=== PATIENT | male | born 1970 | race Caucasian/White ===

== ENCOUNTER 2024-05-24 06:10 | Day surgery (SDC) | payer OTHER, SELFPAY ==
[2024-05-06 12:16] VITALS: BMI 21.7
[2024-05-24] VITALS (11 sets, daily range): BP systolic 106–138; BP diastolic 62–79; BMI 21.7
[2024-05-24] MEDS: TYLENOL 1000 MG PO (08:46)
--- NOTE | 2024-05-24 08:57 | W.SUR.PREOP ---
Pre-Operative Surgical Note
-
I have examined this patient prior to the performance of the scheduled procedure.
The patient's condition is unchanged from the time of the current History and
Physical and the patient is able to undergo the scheduled procedure.
--- NOTE | 2024-05-24 08:58 | HP.FOC2 ---
Focused History & Physical
Chief Complaint
HPI:
Chief Complaint: Left inguinal hernia, right inguinal hernia and umbilical hernia
HPI / Indication for Planned Procedure: Will plan for laparoscopic bilateral inguinal hernia repair with mesh, open umbilical hernia repair with mesh.
Relevant Past Medical History: Negative
Relevant Social History: Negative
Relevant Family History: Negative
Relevant Past Surgical History: Negative
Review of Systems
Review of Pertinent Systems: All Systems Negative
Medication
See Medication form for detailed medications: Yes
Medication List (including Herbals & OTC):
esomeprazole magnesium 20 mg capsule,delayed release (Nexium) 20 mg PO Q48H 06/15/20
losartan 50 mg tablet 75 mg PO QPM 05/17/24
sildenafil 50 mg tablet 50 mg PO PRN PRN ED 05/17/24
Medications Reviewed: Yes
Allergies and Reactions
Patient has Allergies: Yes
Noted Allergies and Reactions:
Allergy/AdvReac Type Severity Reaction Status Date / Time
codeine Allergy Unknown Unknown Verified 05/24/24 08:43
Pertinent Physical Exam
All Other Systems: Negative
Head/Neck: Normal
Diagnosis / Assessment
This is a 53-year-old male with bilateral inguinal hernias as well as an umbilical hernia
Plan / Procedure
Will plan for a laparoscopic bilateral inguinal hernia repair with mesh as well as an open umbilical hernia repair with mesh.
Anesthesia/Sedation to be done by Anesthesia Provider: Yes
[2024-05-24] MEDS: NORMOSOL-R/PLASMALYTE-A 1000 IV (09:00)
[2024-05-24] MEDS: DILAUDID 0.25 MG IV (11:55)
--- NOTE | 2024-05-24 12:07 | W.IMMPOSTOP ---
Surgical Immed Post Op Note
-
Primary Surgeon: Hector Rowland MD
Assisting Surgeon: None
Pre-op Diagnosis: Bilateral inguinal hernias, umbilical hernia
Post-op Diagnosis: Same
Procedure Performed:
1. Laparoscopic bilateral inguinal hernia repair with mesh
2. Open primary umbilical hernia repair
Anesthesia Type: General
Specimen / Cultures: None
Estimated Blood Loss: 3 cc
Complications: None
Operative Findings: Bilateral direct inguinal hernias. No indirect or femoral components. Bilateral small cord lipomas reduced and resected. After achieving the critical view of the MPO bilaterally the floor was reinforced with 2 large Bard 3D
max uncoated polypropylene meshes. The umbilical defect measured 1.1 cm and so was closed with 2 [id number] 0 Surgilon sutures.
--- NOTE | 2024-05-24 12:10 | OR.RPT ---
Operative Report
Operative Report
Patient Name: Diaz Newby
: 1970
Date of Operation: 05/24/2024
Preoperative Diagnosis: Reducible bilateral inguinal hernias, umbilical hernia
Postoperative Diagnosis: Same
Procedure(s):
1. Laparoscopic bilateral inguinal Hernia Repair with mesh, (TEP approach)
2. Open primary umbilical hernia repair
Surgeon(s):
Dr. Rowland
Drywall Finisher Foreman(s):
ALEJANDRA Rivera
Anesthesia: General
Estimated Blood Loss: 3 cc
Urine Output: None
Drains/Lines/Implants: Large 3D Max Bard mid weight mesh x2
Specimens: None
Indication for surgery: The patient has a history of left groin pain and noted on exam to have bilateral inguinal and umbilical hernia(s). Following review of therapeutic options they elected to undergo a minimally invasive repair.
Operative Findings: Bilateral direct inguinal hernias. No indirect or femoral components. Bilateral small cord lipomas reduced and resected. After achieving the critical view of the MPO bilaterally the floor was reinforced with 2 large Bard 3D
max uncoated polypropylene meshes. The umbilical defect measured 1.1 cm and so was closed with 2 [id number]-[id number] 0 Surgilon sutures.
Details of the operation:
After inducing general anesthesia and endotracheal intubation, the patient was prepped and draped in the supine position with both arms tucked. After infiltration with 0.25% Marcaine, a infraumbilical incision was made. Dissection was carried down
to the right anterior sheath which was incised and the rectus muscle retracted laterally. An origin balloon was then inserted in through the posterior portion of the rectus into the preperitoneal space. This was insufflated under direct vision and
blunt dissection was therefore achieved in the preperitoneal space. The balloon was then removed and a 12mm Balloon trocar was placed. Two 5-mm ports were also placed in the midline below the camera port. Blunt dissection was used to dissect the
myopectineal orifice with care not to injure the epigastric vessels, gonadals or spermatic cord. Blunt dissection was used to identify the direct, indirect, and femoral spaces.
Left side:
The cord was inspected and an indirect hernia sac was not identified.
There was a small cord lipoma which was reduced and resected.
There was a weakness in the direct space floor.
There was no femoral herniation.
A large 3D max mesh was then placed into position and positioned into the appropriate area to cover all 3 defects and secured to Troy's ligament with 2 absorbable tacks.
Similarly, on the right side:
The cord was inspected and an indirect hernia sac was not identified.
There was a small cord lipoma which was reduced and resected.
There was a weakness in the direct space floor.
There was no femoral herniation.
A large 3D max mesh was then placed into position and positioned into the appropriate area to cover all 3 defects and secured to Troy's ligament with 2 absorbable tacks.
The area was then completely infiltrated with 20 cc of Marcaine without epinephrine (0.25%). The insufflation was slowly decreased and the mesh was assured to be in proper position with desufflation. The Stefano trocar site was also closed with 0
PDS suture in a abttab-ro-mekhd fashion.
We then turned our attention to the umbilical hernia. The hernia sac was then encircled and carefully dissected off of the umbilical stalk. The defect measured 1.1 cm, given its small size no mesh was placed. The defect was then closed in the
transverse direction using two 0 Surgilon aooudn-xj-xkudl sutures. The umbilical stalk was then tacked down to the fascia with a 3-0 Vicryl suture. The dermis was then approximated with interrupted 3-0 Vicryl sutures and the 5 mm port sites were
closed with a 4-0 Monocryl sutures followed by Dermabond. Once the glue had dried, we placed a folded up piece of gauze into the umbilicus and covered it with a large Tegaderm dressing and then suctioned out the gauze to create a vacuum dressing to
help obliterate the space. The patient returned to the Recovery Room in stable condition. Sponge and instrument counts were correct. No specimens sent to Pathology.
I was the attending physician and performed the procedure with assistance of the PA above. The assistance of ALEJANDRA Rivera was required due to the complexity of the procedure. During the procedure Benita assisted with retraction, resection, and
closure of the wound. I was present for all portions of the case.
Hector Rowland MD
[2024-05-24] MEDS: ROXICODONE 5 MG PO (12:52)
== END 2024-05-24 16:25 | disposition home or self-care (01) ==
LOC: SDS 06:10
PROVIDERS: ATTENDING PHYSICIAN Surgery; FAMILY PHYSICIAN Family Medicine; OTHER PHYSICIAN Internal Medicine Cardiovascular Disease
PROC: 0WQF0ZZ Repair Abdominal Wall, Open Approach (ICD-10-PCS; 2024-05-24)
PROC: 0YUA4JZ Supplement Bilateral Inguinal Region with Synthetic Substitute, Percutaneous Endoscopic Approach (ICD-10-PCS; 2024-05-24)
DX: K40.20 Bilateral inguinal hernia, without obstruction or gangrene, not specified as recurrent (principal); K42.9 Umbilical hernia without obstruction or gangrene; D17.6 Benign lipomatous neoplasm of spermatic cord; Z88.5 Allergy status to narcotic agent
CPT/HCPCS: 49650; 49591; 36415; 93005; C1781